=== PATIENT | male | born 1945 | race Hispanic/Latino ===

== ENCOUNTER → 2019-08-07 | Outpatient (CLI) | payer OTHER ==
[~2019-08-07] MED LIST: AMLO5TAB9 PO; CARV6.25 PO; HUM10VIA6 SQ; HYDR-4154 PO; LISI10TA7 PO; PRAV20TA4 PO; TAMS0.4C32 PO
== END | disposition home or self-care (01) ==
LOC: RAH 11:37
PROVIDERS: ATTEND Urology
DX: N20.0 Calculus of kidney (principal); I12.9 Hypertensive chronic kidney disease with stage 1 through stage 4 chronic kidney disease, or unspecified chronic kidney disease; E11.22 Type 2 diabetes mellitus with diabetic chronic kidney disease; N18.9 Chronic kidney disease, unspecified
CPT/HCPCS: 76770

== ENCOUNTER → 2019-12-31 | Outpatient (CLI) | payer OTHER ==
[~2019-12-31] MED LIST changes: +FERR324T4 PO; +FERR325T22 PO; +FOLI1TAB61 PO; +FOLIC ACID PO; -HUM10VIA6 SQ; +INSU300I SQ; -LISI10TA7 PO; +SEVE800 PO; +SODI650T PO
== END | disposition home or self-care (01) ==
LOC: RAH 08:15
PROVIDERS: ATTEND Urology
DX: N13.30 Unspecified hydronephrosis (principal); N20.0 Calculus of kidney; N18.9 Chronic kidney disease, unspecified; M47.816 Spondylosis without myelopathy or radiculopathy, lumbar region; M41.86 Other forms of scoliosis, lumbar region; I70.0 Atherosclerosis of aorta; Z96.0 Presence of urogenital implants
CPT/HCPCS: 74176

== ENCOUNTER 2020-01-25 06:32 | Day surgery (SDC) | payer OTHER ==
[~2020-01-25] VITALS: Ht 168.9 cm; Wt 85.8 kg
[2020-01-25] VITALS (16 sets, daily range): BP systolic 134–183; BP diastolic 56–78
[~2020-01-25 06:32] MED LIST changes: +AMLO-257 PO; -AMLO5TAB9 PO; -FERR324T4 PO; -SEVE800 PO; -SODI650T PO
[2020-01-25 07:08] LABS: EOSINOPHILS % (AUTO) 7.6 % (0.0-8.0); HEMATOCRIT 26.3 % (42-54); LYMPHOCYTES % (AUTO) 18.7 % (21.0-51.0); MEAN CORPUSCULAR HEMOGLOBIN 28.5 pg (27.0-33.0); MEAN CORPUSCULAR HGB CONC 32.7 g/dL (32.0-36.0); MEAN CORPUSCULAR VOLUME 87.1 fL (79-99); MONOCYTES % (AUTO) 8.2 % (3.0-13.0); NEUTROPHILS % (AUTO) 64.1 % (40.0-77.0); PLATELET COUNT (AUTO) 216 K/uL (130-400); RED BLOOD CELL COUNT(AUTO) 3.02 MIL/uL (4.50-6.20); RED CELL DISTRIBUTION WIDTH 14.7 % (11.0-15.5); WHITE BLOOD COUNT (AUTO) 7.8 K/uL (4.8-10.8)
[2020-01-25] MEDS ORDERED: CEFTRIAXONE SODIUM 1 GM IVP SCH (07:30)
[2020-01-25 07:55] LABS: CREATININE 4.1 mg/dL (0.5-1.5); POTASSIUM 4.1 mmol/L (3.5-5.1)
[2020-01-25] MEDS ORDERED: AMLO-257 PO (07:59)
[2020-01-25] MEDS ORDERED: SODIUM CHLORIDE 0.9% 1000ML 1,000 ML IV ONE (08:02)
[2020-01-25] MEDS ORDERED: IOHEXOL-350 50ML VIAL IV ONE (08:27)
[2020-01-25] MEDS ORDERED: LIDOCAINE PF 2% 5ML ABBOJECT ONE (08:34)
[2020-01-25] MEDS ORDERED: ONDANSETRON HCL 4 MG/2 ML VIAL ONE (08:35)
[2020-01-25] MEDS ORDERED: ROCURONIUM 10MG/1ML SYR 10 MG/ML ML ONE (08:36)
[2020-01-25] MEDS ORDERED: PROPOFOL 10 MG/ML 20ML VIAL IV ONE (08:36)
[2020-01-25] MEDS ORDERED: FENTANYL CITRATE PF 50 MCG/1 ML 2ML VIAL ONE (08:36)
[2020-01-25] MEDS ORDERED: EPHEDRINE SULFATE 50 MG/ML AMPULE ONE (09:01)
[2020-01-25] MEDS: HYDRALAZINE HCL 20 MG/ML VIAL ONE ×2 (09:45→09:46)
--- NOTE | 2020-01-25 10:35 | NUR ---
POST RECEIVED PT FROM PACU, S/P LEFT URETEROSCOPY, LEFT URETERAL STENT . 18 [employer] [employer] [place] CATH IN PLACE DRAINING CLEAR PINK COLOR URINE PT AWAKE AND ALERT IN BED,NO DISTRESS NOTED PT DENIED ANY PAIN OR DISCOMFORTS.
--- NOTE | 2020-01-25 10:40 | NUR ---
FC FC REMOVED, PT TOLERATED WELL. NO ADVERSE REACTIONS NOTED.
[2020-01-25] MEDS ORDERED: PHENAZOPYRIDINE HCL 200 MG TABLET ONE (10:52)
--- NOTE | 2020-01-25 11:15 | NUR ---
DC DC INTRUCTIONS GIVEN TO PTS SPOUSE OVER THE PHONE, INSTRUCTED ON NEW MED REGIMEN AND FOLLOW UP APPOINTMENT, PT SPOUSE VERBALIZED UNDERSTANDING.
--- NOTE | 2020-01-25 11:40 | NUR ---
DC PT DC HOME VIA WC,NO DISTRESS NOTED. ACCOMPANIED BY SON IN LAW.PT DENIED ANY PAIN OR DISCOMFORTS.
[2020-06-12] MEDS ORDERED: TYL2 PO (11:46)
[2020-06-12] MEDS ORDERED: LORA10TA7 PO (11:46)
== END 2020-01-25 11:40 | disposition home or self-care (01) ==
LOC: DAH 06:32
PROVIDERS: ATTEND Urology
DX: N13.2 Hydronephrosis with renal and ureteral calculous obstruction (principal); N47.1 Phimosis; I12.9 Hypertensive chronic kidney disease with stage 1 through stage 4 chronic kidney disease, or unspecified chronic kidney disease; N18.9 Chronic kidney disease, unspecified; Z79.899 Other long term (current) drug therapy
CPT/HCPCS: 36415; 52332; 74420; 80048; 82948; 85025; 87088; 93005; A4215; A4221; A4222; A4223; A4344; A4600; A4663; A5113; C1758; C1769; C2617; J0360; J0696; J2001; J2405; J2704; J3010; J3490; J7030; J7120; Q9967

== ENCOUNTER 2020-06-13 06:18 | Day surgery (SDC) | payer OTHER ==
[~2020-06-13] VITALS: Ht 167.6 cm; Wt 89.4 kg
[2020-06-13] VITALS (8 sets, daily range): BP systolic 92–202; BP diastolic 47–80
[~2020-06-13 06:18] MED LIST changes: -AMLO-257 PO; +AMLO5TAB9 PO; +LORA10TA7 PO; +TYL2 PO
[2020-06-13] MEDS ORDERED: SODIUM CHLORIDE 0.9% 1000ML 1,000 ML IV ONE (06:22)
[2020-06-13 06:58] LABS: CREATININE 3.8 mg/dL (0.5-1.5); POTASSIUM 3.8 mmol/L (3.5-5.1)
[2020-06-13] MEDS ORDERED: PROPOFOL 10 MG/ML 20ML VIAL IV ONE (07:54)
[2020-06-13] MEDS ORDERED: LIDOCAINE HCL 1% 20 ML VIAL ONE (07:54)
--- NOTE | 2020-06-13 08:50 | NUR ---
DC PT DC HOME VIA WC,NO DISTRESS NOTED, PT DENIED ANY PAIN OR DISCOMFORT.PT DC WITH DAUGHTER
== END 2020-06-13 08:50 | disposition home or self-care (01) ==
LOC: DAH 06:18
PROVIDERS: ATTEND Internal Medicine
DX: R19.5 Other fecal abnormalities (principal); K63.5 Polyp of colon; K64.0 First degree hemorrhoids; K57.30 Diverticulosis of large intestine without perforation or abscess without bleeding; I12.0 Hypertensive chronic kidney disease with stage 5 chronic kidney disease or end stage renal disease; E11.22 Type 2 diabetes mellitus with diabetic chronic kidney disease; N18.6 End stage renal disease; Z99.2 Dependence on renal dialysis; E78.5 Hyperlipidemia, unspecified; Z79.899 Other long term (current) drug therapy; Z20.828 Contact with and (suspected) exposure to other viral communicable diseases
CPT/HCPCS: 36415; 45380; 45385; 80048; 82948 ×2; 88305; 93005; A4215; A4221; A4222; A4223; A4606; A4620; A4663; C9803; J2704; J7030; U0003

== ENCOUNTER → 2022-12-22 | Outpatient (CLI) | payer OTHER ==
[~2022-12-22] MED LIST changes: +AMLO-257 PO; -AMLO5TAB9 PO
== END | disposition home or self-care (01) ==
LOC: RAH 14:09
PROVIDERS: ATTEND Internal Medicine Nephrology
DX: N28.1 Cyst of kidney, acquired (principal); N18.5 Chronic kidney disease, stage 5
CPT/HCPCS: 76770